=== PATIENT | female | born 1965 | race African-American/Black ===

== ENCOUNTER 2018-11-24 14:50 | Inpatient (IN) | payer OTHER ==
--- NOTE | 2018-11-24 17:45 | HP ---
CIWA Score - Admission Criteria [facility]ASAS Guidelines: Admission for Medically Managed Detox: Requires at least one of the followin. CIWA greater than 12 2. Seizures within the past 24 hours 3. Delirium tremens within the past 24 hours 4. Hallucinations within the past 24 hours 5. Acute intervention needed for co occurring medical disorder 6. Acute intervention needed for co occurring psychiatric disorder 7. Severe withdrawal that cannot be handled at a lower level of care (continued vomiting, continued diarrhea, abnormal vital signs) requiring intravenous medication and/or fluids 8. Admission [facility] Chief Complaint: THC, Alcohol, umesh rehabilitation Allergies/Adverse Reactions: Allergies Allergy/AdvReac Type Severity Reaction Status Date / Time pregabalin [From Lyrica] Allergy Verified 11/24/18 17:03 shellfish derived Allergy Verified 11/24/18 17:03 History of Present Illness: 52 yo female with hx of nicotine, alcohol, cocaine and marijuana dependence is here seeking rehabilitation, patient was referred by Julia in which she completed inpatient detox for alcohol today. PMHX: HIV. DM II, HTN, Asthma, GERD , neuropathy, (L) carpal tunnel. Psych: depression, anxiety. Denies suicidal / homicidal ideation. Reports hx of suicide one year ago and was admitted to [facility]. Longest period sobriety 23 years and relapsed last year. Denies hx of seizure or blackouts. Exam Limitations: No Limitations - Ebola screening Have you traveled outside of the country in the last 21 days: No Have you had contact with anyone from an Ebola affected area: No - Review of Systems Constitutional: Changes in sleep, Other (weight gain) EENT: reports: No Symptoms Reported Respiratory: reports: No Symptoms reported Cardiac: reports: Other (no chest pain at this time. CP with anxiety) GI: reports: Constipated (last BM today), Indigestion, Other (gas) : reports: Incontinence Musculoskeletal: reports: Back Pain, Joint Pain Integumentary: reports: No Symptoms Reported Neuro: reports: Numbness ( neuropathy hands, feet) Endocrine: reports: Increased Thirst Hematology: reports: No Symptoms Reported Psychiatric: reports: Orientated x3, Anxious Other Systems: Reviewed and Negative Patient History - Patient Medical History Hx Anemia: No Hx Asthma: Yes Hx Chronic Obstructive Pulmonary Disease (COPD): No Hx Cancer: No Hx Cardiac Disorders: No Hx Congestive Heart Failure: No Hx Hypertension: Yes Hx Hypercholesterolemia: No Hx Pacemaker: No HX Cerebrovascular Accident: No Hx Seizures: No Hx Dementia: No Hx Diabetes: Yes (insulin dependent ) Hx Gastrointestinal Disorders: Yes (constipation, GERD ) Hx Liver Disease: No Hx Genitourinary Disorders: No Hx Sexually Transmitted Disorders: Yes (syphillis ) Hx Renal Disease (ESRD): No Hx Thyroid Disease: No Hx Human Immunodeficiency Virus (HIV): Yes Hx Hepatitis C: No Hx Depression: Yes Hx Suicide Attempt: Yes (10x, last year admitted to psych hosp) Hx Bipolar Disorder: No Hx Schizophrenia: No - Patient Surgical History Past Surgical History: Yes Hx Hysterectomy: Yes Anesthesia Reaction: No - PPD History Previous Implant?: No Documented Results: Negative w/o proof PPD to be Administered?: Yes - Reproductive History Patient is a Female of Child Bearing Age (11 -55 yrs old): Yes (hx hystorectomy ) - Smoking Cessation Smoking history: Current every day smoker Have you smoked in the past 12 months: Yes Aproximately how many cigarettes per day: 7 Hx Chewing Tobacco Use: No Initiated information on smoking cessation: Yes 'Breaking Loose' booklet given: 11/24/18 - Substance & Tx. History Hx Alcohol Use: Yes Hx Substance Use: No Substance Use Type: Alcohol, Cocaine, Marijuana Hx Substance Use Treatment: Yes ([facility] 11/19/18 -11/24/18) - Substances abused Alcohol Substance route: Oral Frequency: Daily Amount used: 8 x 12 oz beers + 2 nips vodka + 3 glasses of wine Age of first use: 41 Date of last use: 11/18/18 Crack Substance route: Smoking Frequency: Daily Amount used: $60 Age of first use: 28 Date of last use: 11/18/18 Marijuana/Hashish Substance route: Smoking Frequency: Daily Amount used: 2 BLUNTS Age of first use: 16 Date of last use: 09/25/18 Family Disease History - Family Disease History Family Disease History: Diabetes: Mother (alcoholism, ), Heart Disease: Mother, CA: Mother, Other: Father (renal disease, IVDU, ) Admission Physical Exam [facility] - Vital Signs Vital Signs: Vital Signs - 24 hr 11/24/18 16:49 Temperature 98.6 F Pulse Rate 74 Respiratory 18 Rate Blood Pressure 154/81 - Physical General Appearance: Yes: Appropriately Dressed, Obese, Anxious HEENTM: Yes: EOMI, Hearing grossly Normal, Normal ENT Inspection, Normocephalic , Normal Voice, MUKUND, Pharynx Normal, Tm's normal Respiratory: Yes: Chest Non-Tender, Lungs Clear, Normal Breath Sounds, No Respiratory Distress, No Accessory Muscle Use Neck: Yes: Within Normal Limits Breast: Yes: Breast Exam Deferred Cardiology: Yes: Regular Rhythm, Regular Rate Abdominal: Yes: Normal Bowel Sounds, Non Tender, Soft, Protuberent Genitourinary: Yes: Within Normal Limits Back: Yes: Normal Inspection Musculoskeletal: Yes: full range of Motion, Gait Steady, Pelvis Stable Extremities: Yes: Normal Capillary Refill, Normal Inspection, Normal Range of Motion, Non-Tender Neurological: Yes: land developer II-XII NML intact, Fully Oriented, Alert, Motor Strength 5/5, Depressed Affect Integumentary: Yes: Normal Color, Dry, Warm Lymphatic: Yes: Within Normal Limits - Diagnostic (1) HIV (human immunodeficiency virus infection) Current Visit: Yes Status: Chronic (2) HTN (hypertension) Current Visit: Yes Status: Chronic Qualifiers: Hypertension type: essential hypertension Qualified Code(s): I10 - Essential (primary) hypertension (3) Diabetes mellitus Current Visit: Yes Status: Chronic Qualifiers: Diabetes mellitus type: type 2 Diabetes mellitus epic [facility] specialists insulin use: with detention use (4) Asthma Current Visit: Yes Status: Chronic Qualifiers: Asthma severity: mild Asthma complication type: unspecified (5) Neuropathy Current Visit: Yes Status: Chronic (6) GERD (gastroesophageal reflux disease) Current Visit: Yes Status: Chronic Qualifiers: Esophagitis presence: without esophagitis Qualified Code(s): K21.9 - Gastro -esophageal reflux disease without esophagitis (7) Cocaine dependence Current Visit: Yes Status: Acute Qualifiers: Substance use status: uncomplicated Qualified Code(s): F14.20 - Cocaine dependence, uncomplicated (8) Alcohol dependence Current Visit: Yes Status: Acute Breathalyzer - Breathalyzer Breathalyzer: 0 POC Urine test - Test device test lot number: [id number] Expiration date: 04/24/20 - Control test control: Yes - Result Urine Test Results: Negative - NO line present Urine Drug Screen - Test Device Lot number: [id number] Expiration date: 07/24/20 - Control Is test valid?: Yes - Results Drug screen NEGATIVE: No Urine drug screen results: BZO-Benzodiazepines Inpatient Rehab Admission - Rehab Decision to Admit Inpatient rehab admission?: Yes - Initial Determination Are CD services needed?: Yes Free of communicable disease: Yes Not in need of hospitalization: Yes - Rehab Admission Criteria Previous failed treatment: Yes Poor recovery environment: Yes Comorbidities: Yes Lacks judgement: Yes Patient is meeting Inpatient Rehab admission criteria:: Yes
[2018-11-24] MEDS ORDERED: P-EPHED 60MG/TRIPROLIDI 2.5MG TABLET PO PRN (18:12)
[2018-11-24] MEDS ORDERED: LOPERAMIDE HCL 2 MG CAPSULE PO PRN (18:12)
[2018-11-24] MEDS ORDERED: NICOTINE POLACRILEX 2 MG GUM BC PRN (18:12)
[2018-11-24] MEDS ORDERED: MAGNESIUM HYDROX 2400MG/30ML ORAL SUSPENSION 30 ML CUP PO PRN (18:12)
[2018-11-24] MEDS ORDERED: ACETAMINOPHEN 325 MG TABLET (FP) PO PRN (18:12)
[2018-11-24] MEDS ORDERED: TUBERCULIN PPD 5 TU/0.1ML VIAL ID ONE ×2 (20:29→22:42)
[2018-11-24] MEDS: THIAMINE HCL 100 MG TABLET (FP) PO SCH (21:02)
[2018-11-24] MEDS: GABAPENTIN 800 MG PO SCH (21:02)
[2018-11-24] MEDS ORDERED: PT OWN MED DRAWER 7, Y5N ONE ×2 (21:57→23:55)
[2018-11-24] MEDS: MELATONIN 5 MG TABLETS PO PRN (22:04)
[2018-11-24] MEDS: hydrOXYzine PAMOATE 50 MG CAPSULE (FP) PO SCH (22:07)
[2018-11-24] MEDS: INSULIN (LEVEMIR) 100 UNITS/ML UNITS SQ SCH (22:07)
[2018-11-24] MEDS ORDERED: INSULIN (NOVOLOG) ASPART 100 UNITS/ML 10ML VIAL SQ ONE (22:22)
[2018-11-24] MEDS ORDERED: INSULIN (NOVOLOG) ASPART 100 UNITS/ML 10ML VIAL ONE (22:42)
[2018-11-24 23:12] LABS: EPI CELLS 17.3 /HPF (0-5); PH,URINE 6.5 (5.0-8.0); URINE APPEARANCE CLOUDY; URINE BACTERIA 223.1 /hpf (NEGATIVE); URINE BILIRUBIN NEGATIVE (NEGATIVE); URINE CASTS 3 /hpf (0-8); URINE COLOR YELLOW; URINE GLUCOSE (UA) 3+ (NEGATIVE); URINE KETONE NEGATIVE (NEGATIVE); URINE LEUK ESTERASE NEGATIVE (NEGATIVE); URINE NITRITE NEGATIVE (NEGATIVE); URINE PROTEIN 1+ (NEGATIVE); URINE RBC 2 /hpf (0-4); URINE UROBILINOGEN 0.2 mg/dL (0.2-1.0); URINE WBC 7 /hpf (0-5)
[2018-11-25] MEDS: hydrOXYzine PAMOATE 50 MG CAPSULE (FP) PO SCH (06:45)
[2018-11-25] MEDS: INSULIN (NOVOLOG) ASPART 100 UNITS/ML 10ML VIAL SQ SCH ×3 (06:45→16:52)
[2018-11-25] MEDS: IBUPROFEN 400 MG TABLET (FP) PO PRN ×2 (06:45→13:57)
[2018-11-25] MEDS ORDERED: VIT B COMP C PO SCH (10:00)
[2018-11-25] MEDS ORDERED: [UNRECOGNIZED DRUG - OTHER] PO SCH (10:00)
[2018-11-25] MEDS ORDERED: LISINOPRIL 20 MG TABLET (FP) PO SCH ×3 (10:00→11:30)
[2018-11-25] MEDS ORDERED: FOLIC ACID PO SCH (10:00)
[2018-11-25] MEDS ORDERED: D3 PO SCH (10:00)
[2018-11-25] MEDS ORDERED: BACLOFEN 10 MG TABLET (FP) PO SCH ×3 (10:00→14:00)
[2018-11-25] MEDS ORDERED: FLUCONAZOLE 100 MG PO SCH (10:00)
--- NOTE | 2018-11-25 10:08 | EKG ---
Test Reason : Blood Pressure : / mmHG Vent. Rate : 067 BPM Atrial Rate : 067 BPM P-R Int : 142 ms QRS Dur : 094 ms QT Int : 438 ms P-R-T Axes : 000 146 162 degrees QTc Int : 462 ms SINUS RHYTHM WITH FUSION COMPLEXES RIGHT AXIS DEVIATION INCOMPLETE RIGHT BUNDLE BRANCH BLOCK ABNORMAL ECG NO PREVIOUS ECGS AVAILABLE Confirmed by NETTA FELTON MD ([id number]) on 11/25/2018 10:08:23 AM Referred By: Confirmed By:NETTA FELTON MD
[2018-11-25] MEDS: PATIENT'S OWN MEDICATION (NON-FORMULARY) (Abacavir/Dolutegravir/Lamivudi [Triumeq 600-50-3 PO SCH (11:45)
[2018-11-25] MEDS: NICOTINE 14 MG/24 HOURS TOPICAL PATCH TD SCH (11:46)
[2018-11-25] MEDS: BACLOFEN 10 MG PO SCH (11:46)
[2018-11-25] MEDS: PRENATAL VITAMINS W/ FOLIC ACID TABLET (FP) PO SCH (11:46)
[2018-11-25] MEDS: GABAPENTIN 800 MG PO SCH ×2 (11:46→21:34)
[2018-11-25] MEDS ORDERED: PATIENT'S OWN MEDICATION (NON-FORMULARY) (Fluconazole [Fluconazole] 200 MG) PO SCH (11:48)
[2018-11-25] MEDS: MAGNESIUM CITRATE 300 ML BOTTLE PO PRN (11:56)
[2018-11-25] MEDS: LISINOPRIL 40 MG PO SCH (12:20)
[2018-11-25 12:33] LABS: ALBUMIN 3.1 g/dl (3.4-5.0); ALK PHOS 108 U/L (45-117); ANION GAP 6 MMOL/L (8-16); BILIRUBIN,TOTAL 0.2 mg/dL (0.2-1); BLOOD UREA NITROGEN 20 mg/dL (7-18); CALCIUM 8.8 mg/dL (8.5-10.1); CHLORIDE 101 mmol/L (98-107); CO2 31 mmol/L (21-32); CREATININE 0.7 mg/dL (0.55-1.3); GLUCOSE,RANDOM 192 mg/dL (74-106); POTASSIUM 4.2 mmol/L (3.5-5.1); SGOT/AST 30 U/L (15-37); SGPT/ALT 43 U/L (13-61); SODIUM 138 mmol/L (136-145); TOT PROT 7.3 g/dl (6.4-8.2)
[2018-11-25 12:37] LABS: HEMATOCRIT 37.7 % (32.4-45.2); HEMOGLOBIN 12.3 GM/dL (10.7-15.3); MCH 29.1 pg (25.7-33.7); MCHC 32.7 g/dl (32.0-36.0); MEAN PLT VOLUME 10.1 fl (7.5-11.1); PLATELET COUNT 171 K/MM3 (134-434); RBC 4.23 M/mm3 (3.60-5.2); RDW 14.8 % (11.6-15.6); WHITE BLOOD COUNT 3.7 K/mm3 (4.0-10.0)
--- NOTE | 2018-11-25 13:24 | EKG ---
Test Reason : Blood Pressure : / mmHG Vent. Rate : 075 BPM Atrial Rate : 075 BPM P-R Int : 152 ms QRS Dur : 098 ms QT Int : 412 ms P-R-T Axes : 060 034 023 degrees QTc Int : 460 ms NORMAL SINUS RHYTHM POSSIBLE LEFT ATRIAL ENLARGEMENT BORDERLINE ECG WHEN COMPARED WITH ECG OF 24-NOV-2018 17:46, FUSION COMPLEXES ARE NO LONGER PRESENT QRS AXIS SHIFTED LEFT NON-SPECIFIC CHANGE IN ST SEGMENT IN LATERAL LEADS T WAVE INVERSION NO LONGER EVIDENT IN LATERAL LEADS Confirmed by PURNIMA MAHMOOD, NETTA ([id number]) on 11/25/2018 1:24:09 PM Referred By: Confirmed By:NETTA FELTON MD
[2018-11-25] MEDS: HYDROXYZINE PAMOATE 25 MG PO SCH ×2 (13:56→21:34)
[2018-11-25] MEDS ORDERED: hydrOXYzine PAMOATE 25 MG CAPSULE (FP) PO SCH (14:00)
[2018-11-25] MEDS ORDERED: PT OWN MED DRAWER 7, Y5N ONE ×2 (16:11→23:33)
[2018-11-25] MEDS ORDERED: INSULIN (NOVOLOG) ASPART 100 UNITS/ML 10ML VIAL ONE (16:39)
[2018-11-25] MEDS: MELATONIN 5 MG TABLETS PO PRN (21:34)
[2018-11-25] MEDS: THIAMINE HCL 100 MG TABLET (FP) PO SCH (21:34)
[2018-11-25] MEDS: INSULIN (LEVEMIR) 100 UNITS/ML UNITS SQ SCH (21:39)
[2018-11-25] MEDS ORDERED: ALBUTEROL SO4 0.083% IH SOL 2.5 MG/3 ML VIAL.NEB. NEB PRN (22:35)
[2018-11-26] MEDS ORDERED: cloNIDine HCL 0.1 MG TABLET PO ONE (07:02)
--- NOTE | 2018-11-26 07:05 | PN ---
S Progress Note Note: patient's blood pressure this morning is B/P 183/103. Patient is asymptomatic. Vital Signs Temperature 97.6 F 11/26/18 06:54 Pulse Rate 74 11/26/18 06:54 Respiratory Rate 18 11/26/18 06:54 Blood Pressure 183/106 H 11/26/18 06:54 O2 Sat by Pulse Oximetry (%) Action: Clonidine 0.1mg tablet 1 tablet oral ordered
[2018-11-26] MEDS: HYDROXYZINE PAMOATE 25 MG PO SCH ×3 (07:22→21:36)
[2018-11-26] MEDS: INSULIN (NOVOLOG) ASPART 100 UNITS/ML 10ML VIAL SQ SCH ×3 (07:24→16:58)
[2018-11-26] MEDS ORDERED: PT OWN MED DRAWER 7, Y5N ONE ×5 (08:09→23:50)
[2018-11-26] MEDS ORDERED: D3 PO SCH (08:12)
[2018-11-26] MEDS ORDERED: FOLIC ACID PO SCH (08:12)
[2018-11-26] MEDS ORDERED: VIT B COMP C PO SCH (08:12)
[2018-11-26] MEDS ORDERED: [UNRECOGNIZED DRUG - OTHER] PO SCH (08:12)
[2018-11-26] MEDS: PRENATAL VITAMINS W/ FOLIC ACID TABLET (FP) PO SCH (09:18)
[2018-11-26] MEDS: NICOTINE 14 MG/24 HOURS TOPICAL PATCH TD SCH (09:18)
[2018-11-26] MEDS: BACLOFEN 10 MG PO SCH (09:19)
[2018-11-26] MEDS: PATIENT'S OWN MEDICATION (NON-FORMULARY) (Fluconazole [Fluconazole] 200 MG) PO SCH (09:19)
[2018-11-26] MEDS: PATIENT'S OWN MEDICATION (NON-FORMULARY) (Abacavir/Dolutegravir/Lamivudi [Triumeq 600-50-3 PO SCH (09:19)
[2018-11-26] MEDS: GABAPENTIN 800 MG PO SCH ×2 (09:20→21:37)
[2018-11-26] MEDS: LISINOPRIL 40 MG PO SCH (09:22)
[2018-11-26] MEDS: PANTOPRAZOLE 40 MG TABLET (FP) PO SCH (10:33)
[2018-11-26] MEDS: HYDROCHLOROTHIAZIDE 25 MG TABLET (FP) PO SCH (10:34)
[2018-11-26] MEDS: BUDESONIDE/FORMETEROL FUMARATE 80/4.5 mcg INHALER IH SCH ×2 (10:34→21:41)
[2018-11-26] MEDS: IBUPROFEN 400 MG TABLET (FP) PO PRN ×2 (12:44→21:37)
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
[2018-11-26] MEDS ORDERED: INSULIN (NOVOLOG) ASPART 100 UNITS/ML 10ML VIAL ONE (16:46)
[2018-11-26] MEDS: MAG HYDROX/AL HYDROX/SIMETH 30 ML UNIT-DOSE CUP PO PRN (19:14)
[2018-11-26] MEDS: THIAMINE HCL 100 MG TABLET (FP) PO SCH (21:35)
[2018-11-26] MEDS ORDERED: INSULIN (LEVEMIR) 100 UNITS/ML UNITS SQ ONE (21:39)
[2018-11-26] MEDS: LURASIDONE HCL 20 MG TABLET PO SCH (21:40)
[2018-11-26] MEDS: INSULIN (LEVEMIR) 100 UNITS/ML UNITS SQ SCH (21:42)
[2018-11-27] MEDS: HYDROXYZINE PAMOATE 25 MG PO SCH ×3 (06:53→21:47)
[2018-11-27] MEDS: INSULIN (NOVOLOG) ASPART 100 UNITS/ML 10ML VIAL SQ SCH ×3 (07:51→16:43)
[2018-11-27] MEDS ORDERED: PT OWN MED DRAWER 7, Y5N ONE ×4 (09:04→23:19)
[2018-11-27] MEDS: PRENATAL VITAMINS W/ FOLIC ACID TABLET (FP) PO SCH (10:30)
[2018-11-27] MEDS: BACLOFEN 10 MG PO SCH (10:31)
[2018-11-27] MEDS: VITAMIN B COMPLEX W/C COMBO TABLET (FP) PO SCH (10:31)
[2018-11-27] MEDS: BUDESONIDE/FORMETEROL FUMARATE 80/4.5 mcg INHALER IH SCH ×2 (10:31→21:50)
[2018-11-27] MEDS: PANTOPRAZOLE 40 MG TABLET (FP) PO SCH (10:31)
[2018-11-27] MEDS: PATIENT'S OWN MEDICATION (NON-FORMULARY) (Abacavir/Dolutegravir/Lamivudi [Triumeq 600-50-3 PO SCH (10:31)
[2018-11-27] MEDS: HYDROCHLOROTHIAZIDE 25 MG TABLET (FP) PO SCH (10:31)
[2018-11-27] MEDS: LISINOPRIL 40 MG PO SCH (10:32)
[2018-11-27] MEDS: GABAPENTIN 800 MG PO SCH ×2 (10:32→21:49)
[2018-11-27] MEDS: PATIENT'S OWN MEDICATION (NON-FORMULARY) (Fluconazole [Fluconazole] 200 MG) PO SCH (10:33)
[2018-11-27] MEDS: NICOTINE 14 MG/24 HOURS TOPICAL PATCH TD SCH (10:34)
[2018-11-27] MEDS ORDERED: ALBUTEROL SO4 8 GM HFA INHALER IH PRN (10:47)
--- NOTE | 2018-11-27 10:50 | PN ---
[facility] Progress Note Note: NOTIFIED BY RN PATIENT C/O ANXIETY AND PALPITATIONS. PATIENT TREATED WITH VISTARIL 50 MG TID WHICH HELPS TO ALLEVIATE SYMPTOMS, HOWEVER NEXT DOSE IS AT 2PM. WILL ORDER STAT DOSE OF VISTARIL AND MONITOR CLINICALLY. PATIENT ALSO REPORTS H/O ASTHMA. ALBUTEROL INH AND NEBULIZERS ORDERED PRN. CONTINUE TO MONITOR CLINICALLY. Vital Signs Temperature 97.9 F 11/27/18 07:36 Pulse Rate 86 11/27/18 09:32 Respiratory Rate 18 11/27/18 07:36 Blood Pressure 158/82 11/27/18 09:32 O2 Sat by Pulse Oximetry (%)
[2018-11-27] MEDS ORDERED: hydrOXYzine PAMOATE 50 MG CAPSULE (FP) PO ONE (11:14)
[2018-11-27] MEDS: IBUPROFEN 400 MG TABLET (FP) PO PRN (14:43)
[2018-11-27] MEDS ORDERED: INSULIN (NOVOLOG) ASPART 100 UNITS/ML 10ML VIAL ONE (16:32)
[2018-11-27] MEDS: MAGNESIUM CITRATE 300 ML BOTTLE PO PRN (16:40)
[2018-11-27] MEDS: THIAMINE HCL 100 MG TABLET (FP) PO SCH (21:46)
[2018-11-27] MEDS: LURASIDONE HCL 20 MG TABLET PO SCH (21:48)
[2018-11-27] MEDS: INSULIN (LEVEMIR) 100 UNITS/ML UNITS SQ SCH (21:48)
[2018-11-27] MEDS ORDERED: INSULIN (LEVEMIR) 100 UNITS/ML UNITS SQ ONE (23:27)
[2018-11-28] MEDS: HYDROXYZINE PAMOATE 25 MG PO SCH ×3 (06:44→21:46)
[2018-11-28] MEDS: INSULIN (NOVOLOG) ASPART 100 UNITS/ML 10ML VIAL SQ SCH ×3 (06:46→16:57)
[2018-11-28] MEDS: PATIENT'S OWN MEDICATION (NON-FORMULARY) (Abacavir/Dolutegravir/Lamivudi [Triumeq 600-50-3 PO SCH (09:48)
[2018-11-28] MEDS: PATIENT'S OWN MEDICATION (NON-FORMULARY) (Fluconazole [Fluconazole] 200 MG) PO SCH (09:49)
[2018-11-28] MEDS: GABAPENTIN 800 MG PO SCH ×2 (09:51→21:02)
[2018-11-28] MEDS: HYDROCHLOROTHIAZIDE 25 MG TABLET (FP) PO SCH (09:52)
[2018-11-28] MEDS: NICOTINE 14 MG/24 HOURS TOPICAL PATCH TD SCH (09:52)
[2018-11-28] MEDS: BACLOFEN 10 MG PO SCH (09:52)
[2018-11-28] MEDS: PANTOPRAZOLE 40 MG TABLET (FP) PO SCH (09:53)
[2018-11-28] MEDS: PRENATAL VITAMINS W/ FOLIC ACID TABLET (FP) PO SCH (09:53)
[2018-11-28] MEDS: BUDESONIDE/FORMETEROL FUMARATE 80/4.5 mcg INHALER IH SCH ×2 (09:53→21:46)
[2018-11-28] MEDS: LISINOPRIL 40 MG PO SCH (09:53)
[2018-11-28] MEDS: VITAMIN B COMPLEX W/C COMBO TABLET (FP) PO SCH (09:54)
[2018-11-28] MEDS: IBUPROFEN 400 MG TABLET (FP) PO PRN ×2 (09:56→21:05)
[2018-11-28] MEDS ORDERED: PT OWN MED DRAWER 7, Y5N ONE ×2 (11:00→13:51)
[2018-11-28] MEDS: MAG HYDROX/AL HYDROX/SIMETH 30 ML UNIT-DOSE CUP PO PRN (16:57)
[2018-11-28] MEDS: INSULIN (LEVEMIR) 100 UNITS/ML UNITS SQ SCH (21:03)
[2018-11-28] MEDS: LURASIDONE HCL 20 MG TABLET PO SCH (21:03)
[2018-11-28] MEDS: THIAMINE HCL 100 MG TABLET (FP) PO SCH (21:03)
[2018-11-29] MEDS: HYDROXYZINE PAMOATE 25 MG PO SCH ×3 (06:28→21:32)
[2018-11-29] MEDS: INSULIN (NOVOLOG) ASPART 100 UNITS/ML 10ML VIAL SQ SCH ×3 (06:28→16:51)
[2018-11-29] MEDS ORDERED: PT OWN MED DRAWER 7, Y5N ONE ×3 (06:31→22:53)
[2018-11-29] MEDS: IBUPROFEN 400 MG TABLET (FP) PO PRN (08:35)
[2018-11-29] MEDS: MENTHOL/PHENOL 1 EACH UD MM PRN (08:37)
[2018-11-29] MEDS: guaiFENesin 200 MG/10 ML 10 ML UNIT-DOSE CUPS PO PRN (08:37)
[2018-11-29] MEDS: PATIENT'S OWN MEDICATION (NON-FORMULARY) (Abacavir/Dolutegravir/Lamivudi [Triumeq 600-50-3 PO SCH (10:02)
[2018-11-29] MEDS: PATIENT'S OWN MEDICATION (NON-FORMULARY) (Fluconazole [Fluconazole] 200 MG) PO SCH (10:02)
[2018-11-29] MEDS: GABAPENTIN 800 MG PO SCH ×2 (10:02→21:30)
[2018-11-29] MEDS: BACLOFEN 10 MG PO SCH (10:03)
[2018-11-29] MEDS: NICOTINE 14 MG/24 HOURS TOPICAL PATCH TD SCH (10:03)
[2018-11-29] MEDS: HYDROCHLOROTHIAZIDE 25 MG TABLET (FP) PO SCH (10:03)
[2018-11-29] MEDS: PANTOPRAZOLE 40 MG TABLET (FP) PO SCH (10:04)
[2018-11-29] MEDS: BUDESONIDE/FORMETEROL FUMARATE 80/4.5 mcg INHALER IH SCH ×2 (10:04→21:31)
[2018-11-29] MEDS: PRENATAL VITAMINS W/ FOLIC ACID TABLET (FP) PO SCH (10:04)
[2018-11-29] MEDS: VITAMIN B COMPLEX W/C COMBO TABLET (FP) PO SCH (10:04)
[2018-11-29] MEDS: LISINOPRIL 40 MG PO SCH (10:04)
[2018-11-29] MEDS: LURASIDONE HCL 20 MG TABLET PO SCH (21:30)
[2018-11-29] MEDS: MELATONIN 5 MG TABLETS PO PRN (21:32)
[2018-11-29] MEDS: THIAMINE HCL 100 MG TABLET (FP) PO SCH (21:32)
[2018-11-29] MEDS: INSULIN (LEVEMIR) 100 UNITS/ML UNITS SQ SCH (21:34)
[2018-11-30] MEDS: HYDROXYZINE PAMOATE 25 MG PO SCH ×3 (06:48→21:31)
[2018-11-30] MEDS: MENTHOL/PHENOL 1 EACH UD MM PRN (06:51)
[2018-11-30] MEDS: IBUPROFEN 400 MG TABLET (FP) PO PRN ×2 (06:51→21:33)
[2018-11-30] MEDS: INSULIN (NOVOLOG) ASPART 100 UNITS/ML 10ML VIAL SQ SCH ×3 (07:44→16:56)
[2018-11-30] MEDS: PRENATAL VITAMINS W/ FOLIC ACID TABLET (FP) PO SCH (09:45)
[2018-11-30] MEDS: PANTOPRAZOLE 40 MG TABLET (FP) PO SCH (09:45)
[2018-11-30] MEDS: HYDROCHLOROTHIAZIDE 25 MG TABLET (FP) PO SCH (09:45)
[2018-11-30] MEDS: VITAMIN B COMPLEX W/C COMBO TABLET (FP) PO SCH (09:46)
[2018-11-30] MEDS: BACLOFEN 10 MG PO SCH (09:47)
[2018-11-30] MEDS: NICOTINE 14 MG/24 HOURS TOPICAL PATCH TD SCH (09:47)
[2018-11-30] MEDS: LISINOPRIL 40 MG PO SCH (09:47)
[2018-11-30] MEDS: GABAPENTIN 800 MG PO SCH ×2 (09:47→21:36)
[2018-11-30] MEDS: PATIENT'S OWN MEDICATION (NON-FORMULARY) (Fluconazole [Fluconazole] 200 MG) PO SCH (09:47)
[2018-11-30] MEDS: BUDESONIDE/FORMETEROL FUMARATE 80/4.5 mcg INHALER IH SCH ×2 (09:48→21:38)
[2018-11-30] MEDS: PATIENT'S OWN MEDICATION (NON-FORMULARY) (Abacavir/Dolutegravir/Lamivudi [Triumeq 600-50-3 PO SCH (09:48)
--- NOTE | 2018-11-30 13:34 | PN ---
[facility] Progress Note Note: Patient seen for c/o sore throat and order for stool softener. Patient denies fever, cough, earache and nasal congestion. Has hx of constipation. Vital Signs Temperature 98.0 F 11/30/18 07:33 Pulse Rate 83 11/30/18 09:52 Respiratory Rate 18 11/30/18 07:33 Blood Pressure 149/79 11/30/18 09:52 O2 Sat by Pulse Oximetry (%) Laboratory Tests 11/24/18 11/24/18 11/24/18 19:33 21:10 22:00 WBC RBC Hgb Hct MCV MCH MCHC RDW Plt Count MPV Sodium Potassium Chloride Carbon Dioxide Anion Gap BUN Creatinine Creat Clearance w eGFR POC Glucometer 258 266 Random Glucose Calcium Total Bilirubin AST ALT Alkaline Phosphatase Total Protein Albumin Urine Color Yellow Urine Appearance Cloudy Urine pH 6.5 Ur Specific [place] 1.015 Urine Protein 1+ H Urine Glucose (UA) 3+ H Urine Ketones Negative Urine Blood Negative Urine Nitrite Negative Urine Bilirubin Negative Urine Urobilinogen 0.2 Ur Leukocyte Esterase Negative Urine WBC (Auto) 7 Urine RBC (Auto) 2 Urine Casts (Auto) 3 U Epithel Cells (Auto) 17.3 Urine Bacteria (Auto) 223.1 RPR Titer 11/24/18 11/25/18 11/25/18 22:05 06:42 09:00 WBC 3.7 L RBC 4.23 Hgb 12.3 Hct 37.7 MCV 89.0 MCH 29.1 MCHC 32.7 RDW 14.8 Plt Count 171 MPV 10.1 Sodium Potassium Chloride Carbon Dioxide Anion Gap BUN Creatinine Creat Clearance w eGFR POC Glucometer 351 266 Random Glucose Calcium Total Bilirubin AST ALT Alkaline Phosphatase Total Protein Albumin Urine Color Urine Appearance Urine pH Ur Specific [place] Urine Protein Urine Glucose (UA) Urine Ketones Urine Blood Urine Nitrite Urine Bilirubin Urine Urobilinogen Ur Leukocyte Esterase Urine WBC (Auto) Urine RBC (Auto) Urine Casts (Auto) U Epithel Cells (Auto) Urine Bacteria (Auto) RPR Titer 11/25/18 11/25/18 11/25/18 09:00 09:00 11:49 WBC RBC Hgb Hct MCV MCH MCHC RDW Plt Count MPV Sodium 138 Potassium 4.2 Chloride 101 Carbon Dioxide 31 Anion Gap 6 L BUN 20 H Creatinine 0.7 Creat Clearance w eGFR 88.22 POC Glucometer 315 Random Glucose 192 H Calcium 8.8 Total Bilirubin 0.2 AST 30 ALT 43 Alkaline Phosphatase 108 Total Protein 7.3 Albumin 3.1 L Urine Color Urine Appearance Urine pH Ur Specific [place] Urine Protein Urine Glucose (UA) Urine Ketones Urine Blood Urine Nitrite Urine Bilirubin Urine Urobilinogen Ur Leukocyte Esterase Urine WBC (Auto) Urine RBC (Auto) Urine Casts (Auto) U Epithel Cells (Auto) Urine Bacteria (Auto) RPR Titer Nonreactive 11/25/18 11/25/18 11/26/18 16:51 21:37 06:52 WBC RBC Hgb Hct MCV MCH MCHC RDW Plt Count MPV Sodium Potassium Chloride Carbon Dioxide Anion Gap BUN Creatinine Creat Clearance w eGFR POC Glucometer 200 277 243 Random Glucose Calcium Total Bilirubin AST ALT Alkaline Phosphatase Total Protein Albumin Urine Color Urine Appearance Urine pH Ur Specific [place] Urine Protein Urine Glucose (UA) Urine Ketones Urine Blood Urine Nitrite Urine Bilirubin Urine Urobilinogen Ur Leukocyte Esterase Urine WBC (Auto) Urine RBC (Auto) Urine Casts (Auto) U Epithel Cells (Auto) Urine Bacteria (Auto) RPR Titer 11/26/18 11/26/18 11/26/18 11:49 16:56 21:41 WBC RBC Hgb Hct MCV MCH MCHC RDW Plt Count MPV Sodium Potassium Chloride Carbon Dioxide Anion Gap BUN Creatinine Creat Clearance w eGFR POC Glucometer 267 313 356 Random Glucose Calcium Total Bilirubin AST ALT Alkaline Phosphatase Total Protein Albumin Urine Color Urine Appearance Urine pH Ur Specific [place] Urine Protein Urine Glucose (UA) Urine Ketones Urine Blood Urine Nitrite Urine Bilirubin Urine Urobilinogen Ur Leukocyte Esterase Urine WBC (Auto) Urine RBC (Auto) Urine Casts (Auto) U Epithel Cells (Auto) Urine Bacteria (Auto) RPR Titer 11/27/18 11/27/18 11/27/18 06:49 12:18 16:42 WBC RBC Hgb Hct MCV MCH MCHC RDW Plt Count MPV Sodium Potassium Chloride Carbon Dioxide Anion Gap BUN Creatinine Creat Clearance w eGFR POC Glucometer 105 224 285 Random Glucose Calcium Total Bilirubin AST ALT Alkaline Phosphatase Total Protein Albumin Urine Color Urine Appearance Urine pH Ur Specific [place] Urine Protein Urine Glucose (UA) Urine Ketones Urine Blood Urine Nitrite Urine Bilirubin Urine Urobilinogen Ur Leukocyte Esterase Urine WBC (Auto) Urine RBC (Auto) Urine Casts (Auto) U Epithel Cells (Auto) Urine Bacteria (Auto) RPR Titer 11/27/18 11/28/18 11/28/18 21:52 06:42 11:53 WBC RBC Hgb Hct MCV MCH MCHC RDW Plt Count MPV Sodium Potassium Chloride Carbon Dioxide Anion Gap BUN Creatinine Creat Clearance w eGFR POC Glucometer 321 207 245 Random Glucose Calcium Total Bilirubin AST ALT Alkaline Phosphatase Total Protein Albumin Urine Color Urine Appearance Urine pH Ur Specific [place] Urine Protein Urine Glucose (UA) Urine Ketones Urine Blood Urine Nitrite Urine Bilirubin Urine Urobilinogen Ur Leukocyte Esterase Urine WBC (Auto) Urine RBC (Auto) Urine Casts (Auto) U Epithel Cells (Auto) Urine Bacteria (Auto) RPR Titer 11/28/18 11/28/18 11/29/18 16:52 21:01 06:27 WBC RBC Hgb Hct MCV MCH MCHC RDW Plt Count MPV Sodium Potassium Chloride Carbon Dioxide Anion Gap BUN Creatinine Creat Clearance w eGFR POC Glucometer 265 309 82 Random Glucose Calcium Total Bilirubin AST ALT Alkaline Phosphatase Total Protein Albumin Urine Color Urine Appearance Urine pH Ur Specific [place] Urine Protein Urine Glucose (UA) Urine Ketones Urine Blood Urine Nitrite Urine Bilirubin Urine Urobilinogen Ur Leukocyte Esterase Urine WBC (Auto) Urine RBC (Auto) Urine Casts (Auto) U Epithel Cells (Auto) Urine Bacteria (Auto) RPR Titer 11/29/18 11/29/18 11/29/18 11:47 16:48 21:29 WBC RBC Hgb Hct MCV MCH MCHC RDW Plt Count MPV Sodium Potassium Chloride Carbon Dioxide Anion Gap BUN Creatinine Creat Clearance w eGFR POC Glucometer 240 285 292 Random Glucose Calcium Total Bilirubin AST ALT Alkaline Phosphatase Total Protein Albumin Urine Color Urine Appearance Urine pH Ur Specific [place] Urine Protein Urine Glucose (UA) Urine Ketones Urine Blood Urine Nitrite Urine Bilirubin Urine Urobilinogen Ur Leukocyte Esterase Urine WBC (Auto) Urine RBC (Auto) Urine Casts (Auto) U Epithel Cells (Auto) Urine Bacteria (Auto) RPR Titer 11/30/18 11/30/18 11/30/18 06:49 09:35 11:53 WBC RBC Hgb Hct MCV MCH MCHC RDW Plt Count MPV Sodium Potassium Chloride Carbon Dioxide Anion Gap BUN Creatinine Creat Clearance w eGFR POC Glucometer 143 179 179 Random Glucose Calcium Total Bilirubin AST ALT Alkaline Phosphatase Total Protein Albumin Urine Color Urine Appearance Urine pH Ur Specific [place] Urine Protein Urine Glucose (UA) Urine Ketones Urine Blood Urine Nitrite Urine Bilirubin Urine Urobilinogen Ur Leukocyte Esterase Urine WBC (Auto) Urine RBC (Auto) Urine Casts (Auto) U Epithel Cells (Auto) Urine Bacteria (Auto) RPR Titer PE: alert and oriented x 3 skin warm and dry +perrla, eoms intact b/l, pharynx pink, tonsils 2+, no visible exudate neck supple, no jvd a/p: Pharyngitis hx of constipation will continue cepastat prn salt water gargles as tolerated order throat culture colace 100mg bid for stool softener continue to monitor clinically
[2018-11-30] MEDS: DOCUSATE SODIUM 100 MG CAPSULE (FP) PO SCH ×2 (14:41→21:31)
[2018-11-30] MEDS ORDERED: PT OWN MED DRAWER 7, Y5N ONE ×4 (14:43→23:18)
[2018-11-30] MEDS: SIMETHICONE 80 MG TAB.CHEW (FP) PO PRN ×2 (14:44→23:16)
[2018-11-30] MEDS: THIAMINE HCL 100 MG TABLET (FP) PO SCH (21:31)
[2018-11-30] MEDS: MELATONIN 5 MG TABLETS PO PRN (21:32)
[2018-11-30] MEDS: LURASIDONE HCL 20 MG TABLET PO SCH (21:34)
[2018-11-30] MEDS: INSULIN (LEVEMIR) 100 UNITS/ML UNITS SQ SCH (21:37)
[2018-11-30] MEDS ORDERED: INSULIN (NOVOLOG) ASPART 100 UNITS/ML 10ML VIAL ONE (23:25)
[2018-12-01] MEDS: HYDROXYZINE PAMOATE 25 MG PO SCH ×3 (06:26→21:59)
[2018-12-01] MEDS: MENTHOL/PHENOL 1 EACH UD MM PRN (06:27)
[2018-12-01] MEDS: IBUPROFEN 400 MG TABLET (FP) PO PRN (06:27)
[2018-12-01] MEDS: guaiFENesin 200 MG/10 ML 10 ML UNIT-DOSE CUPS PO PRN (06:27)
[2018-12-01] MEDS: INSULIN (NOVOLOG) ASPART 100 UNITS/ML 10ML VIAL SQ SCH ×3 (06:59→16:55)
[2018-12-01] MEDS: HYDROCHLOROTHIAZIDE 25 MG TABLET (FP) PO SCH (10:26)
[2018-12-01] MEDS: PRENATAL VITAMINS W/ FOLIC ACID TABLET (FP) PO SCH (10:26)
[2018-12-01] MEDS: PANTOPRAZOLE 40 MG TABLET (FP) PO SCH (10:26)
[2018-12-01] MEDS: DOCUSATE SODIUM 100 MG CAPSULE (FP) PO SCH ×2 (10:26→21:58)
[2018-12-01] MEDS: PATIENT'S OWN MEDICATION (NON-FORMULARY) (Abacavir/Dolutegravir/Lamivudi [Triumeq 600-50-3 PO SCH (10:27)
[2018-12-01] MEDS: VITAMIN B COMPLEX W/C COMBO TABLET (FP) PO SCH (10:27)
[2018-12-01] MEDS: LISINOPRIL 40 MG PO SCH (10:28)
[2018-12-01] MEDS: PATIENT'S OWN MEDICATION (NON-FORMULARY) (Fluconazole [Fluconazole] 200 MG) PO SCH (10:28)
[2018-12-01] MEDS: BACLOFEN 10 MG PO SCH (10:28)
[2018-12-01] MEDS: NICOTINE 14 MG/24 HOURS TOPICAL PATCH TD SCH (10:29)
[2018-12-01] MEDS: BUDESONIDE/FORMETEROL FUMARATE 80/4.5 mcg INHALER IH SCH ×2 (10:29→21:59)
[2018-12-01] MEDS: GABAPENTIN 800 MG PO SCH ×2 (10:31→21:58)
[2018-12-01] MEDS ORDERED: PT OWN MED DRAWER 7, Y5N ONE ×3 (10:31→22:54)
[2018-12-01] MEDS: SIMETHICONE 80 MG TAB.CHEW (FP) PO PRN (12:05)
[2018-12-01] MEDS: THIAMINE HCL 100 MG TABLET (FP) PO SCH (21:58)
[2018-12-01] MEDS: MELATONIN 5 MG TABLETS PO PRN (22:01)
[2018-12-01] MEDS: LURASIDONE HCL 20 MG TABLET PO SCH (22:03)
[2018-12-01] MEDS: INSULIN (LEVEMIR) 100 UNITS/ML UNITS SQ SCH (22:03)
[2018-12-02] MEDS ORDERED: PT OWN MED DRAWER 7, Y5N ONE ×3 (02:51→11:22)
[2018-12-02] MEDS: INSULIN (NOVOLOG) ASPART 100 UNITS/ML 10ML VIAL SQ SCH ×3 (06:18→17:08)
[2018-12-02] MEDS: HYDROXYZINE PAMOATE 25 MG PO SCH ×3 (06:19→21:17)
[2018-12-02] MEDS: guaiFENesin 200 MG/10 ML 10 ML UNIT-DOSE CUPS PO PRN ×2 (06:20→21:57)
[2018-12-02] MEDS: PATIENT'S OWN MEDICATION (NON-FORMULARY) (Abacavir/Dolutegravir/Lamivudi [Triumeq 600-50-3 PO SCH (11:05)
[2018-12-02] MEDS: DOCUSATE SODIUM 100 MG CAPSULE (FP) PO SCH ×2 (11:06→21:18)
[2018-12-02] MEDS: PATIENT'S OWN MEDICATION (NON-FORMULARY) (Fluconazole [Fluconazole] 200 MG) PO SCH (11:07)
[2018-12-02] MEDS: GABAPENTIN 800 MG PO SCH ×2 (11:07→21:19)
[2018-12-02] MEDS: HYDROCHLOROTHIAZIDE 25 MG TABLET (FP) PO SCH (11:09)
[2018-12-02] MEDS: NICOTINE 14 MG/24 HOURS TOPICAL PATCH TD SCH (11:09)
[2018-12-02] MEDS: BACLOFEN 10 MG PO SCH (11:09)
[2018-12-02] MEDS: PRENATAL VITAMINS W/ FOLIC ACID TABLET (FP) PO SCH (11:10)
[2018-12-02] MEDS: LISINOPRIL 40 MG PO SCH (11:10)
[2018-12-02] MEDS: PANTOPRAZOLE 40 MG TABLET (FP) PO SCH (11:10)
[2018-12-02] MEDS: BUDESONIDE/FORMETEROL FUMARATE 80/4.5 mcg INHALER IH SCH ×2 (11:11→21:19)
[2018-12-02] MEDS: SIMETHICONE 80 MG TAB.CHEW (FP) PO PRN ×2 (11:12→21:20)
[2018-12-02] MEDS: VITAMIN B COMPLEX W/C COMBO TABLET (FP) PO SCH (11:12)
[2018-12-02] MEDS: SODIUM CHLORIDE NASAL SPRAY 44 ML BOTTLE NS PRN (11:13)
[2018-12-02] MEDS: MENTHOL/PHENOL 1 EACH UD MM PRN (13:55)
--- NOTE | 2018-12-02 14:35 | PN ---
[facility] Progress Note Note: REVIEWED DIFLUCAN RX WITH PATIENT WHO STATES SHE DOES NOT WANT TO CONTINUE AFTER HER LAST DOSE AND WILL WAIT TO GO BACK TO HER MEDICAL PROVIDER BEFORE TAKING IF NEEDED. PT IS ALERT O X 3. NAD. Vital Signs - 24 hr 12/02/18 12/02/18 12/02/18 03:30 07:05 09:13 Temperature 97.4 F L Pulse Rate 79 96 H Respiratory 18 18 Rate Blood Pressure 135/82 161/91
[2018-12-02] MEDS: INSULIN (LEVEMIR) 100 UNITS/ML UNITS SQ SCH (21:16)
[2018-12-02] MEDS: THIAMINE HCL 100 MG TABLET (FP) PO SCH (21:16)
[2018-12-02] MEDS: MELATONIN 5 MG TABLETS PO PRN (21:18)
[2018-12-02] MEDS: IBUPROFEN 400 MG TABLET (FP) PO PRN (21:20)
[2018-12-02] MEDS: LURASIDONE HCL 20 MG TABLET PO SCH (21:22)
[2018-12-03] MEDS ORDERED: PT OWN MED DRAWER 7, Y5N ONE ×2 (06:11→11:15)
[2018-12-03] MEDS: HYDROXYZINE PAMOATE 25 MG PO SCH (06:37)
[2018-12-03] MEDS: MENTHOL/PHENOL 1 EACH UD MM PRN (06:38)
[2018-12-03] MEDS: guaiFENesin 200 MG/10 ML 10 ML UNIT-DOSE CUPS PO PRN (06:38)
[2018-12-03] MEDS: SODIUM CHLORIDE NASAL SPRAY 44 ML BOTTLE NS PRN (06:40)
[2018-12-03 07:01] VITALS: TEMP 97.6
[2018-12-03] MEDS: INSULIN (NOVOLOG) ASPART 100 UNITS/ML 10ML VIAL SQ SCH ×2 (07:49→12:00)
[2018-12-03 09:06] VITALS: BP 151/84; PULSE 96
[2018-12-03] MEDS: PRENATAL VITAMINS W/ FOLIC ACID TABLET (FP) PO SCH (09:51)
[2018-12-03] MEDS: DOCUSATE SODIUM 100 MG CAPSULE (FP) PO SCH (09:52)
[2018-12-03] MEDS: HYDROCHLOROTHIAZIDE 25 MG TABLET (FP) PO SCH (09:52)
[2018-12-03] MEDS: PATIENT'S OWN MEDICATION (NON-FORMULARY) (Abacavir/Dolutegravir/Lamivudi [Triumeq 600-50-3 PO SCH (09:52)
[2018-12-03] MEDS: BACLOFEN 10 MG PO SCH (09:52)
[2018-12-03] MEDS: PANTOPRAZOLE 40 MG TABLET (FP) PO SCH (09:52)
[2018-12-03] MEDS: VITAMIN B COMPLEX W/C COMBO TABLET (FP) PO SCH (09:52)
[2018-12-03] MEDS: LISINOPRIL 40 MG PO SCH (09:53)
[2018-12-03] MEDS: GABAPENTIN 800 MG PO SCH (09:53)
[2018-12-03] MEDS: BUDESONIDE/FORMETEROL FUMARATE 80/4.5 mcg INHALER IH SCH (09:54)
[2018-12-03] MEDS: NICOTINE 14 MG/24 HOURS TOPICAL PATCH TD SCH (09:54)
--- NOTE | 2018-12-03 11:34 | PN ---
[facility] Progress Note (SOAP) Subjective: Client is leaving today for personal reasons, has been her > 8 days. Objective: 12/03/18 11:30 CBC, BMP 11/25/18 09:00 11/25/18 09:00 Vital Signs (72 hours) 12/01/18 12/01/18 12/01/18 00:30 03:30 07:35 Temperature 97.2 F L Pulse Rate 69 Respiratory 18 18 18 Rate Blood Pressure 144/87 12/01/18 12/02/18 12/02/18 09:30 03:30 07:05 Temperature 97.4 F L Pulse Rate 87 79 Respiratory 18 18 18 Rate Blood Pressure 163/89 135/82 12/02/18 12/03/18 12/03/18 09:13 07:00 09:06 Temperature 97.6 F Pulse Rate 96 H 82 96 H Respiratory 18 Rate Blood Pressure 161/91 146/84 151/84 12/03/18 11:30 BGM last 2 days range from 112-171, down from 200s previous week-patient was not always adherent to medications and refused diabetic medicine several times during her stay. A+O x3, CN 2-12 intact, no neurological deficits, Lungs clear , heart rate regular, S1S2 audible, medically stable for discharge. Assessment: 12/03/18 11:33 Medically stable for discharge Diagnoses: HIV HTN Diabetes, type 2 Peripheral neuropathy, GERD ETOH dependence, chronic Plan: After care at [facility], on-going medical care at [facility] with Dr. Negro. Client does not need prescriptions for medications, her medications are due to be delivered to her today at her address.
== END 2018-12-03 12:28 | disposition home or self-care (01) | DRG 772 ==
LOC: YASAS 14:50 → Y3E 18:39
PROVIDERS: ADMIT Neuromusculoskeletal Medicine & OMM; ATTEND Neuromusculoskeletal Medicine & OMM
PROC: HZ42ZZZ Group Counseling for Substance Abuse Treatment, Cognitive-Behavioral (ICD-10-PCS; principal; 2018-11-24)
DX: F10.20 Alcohol dependence, uncomplicated (principal); F14.20 Cocaine dependence, uncomplicated; F12.20 Cannabis dependence, uncomplicated; F17.210 Nicotine dependence, cigarettes, uncomplicated; F39 Unspecified mood [affective] disorder; F42.9 Obsessive-compulsive disorder, unspecified; F19.24 Other psychoactive substance dependence with psychoactive substance-induced mood disorder; F19.282 Other psychoactive substance dependence with psychoactive substance-induced sleep disorder; I10 Essential (primary) hypertension; Z21 Asymptomatic human immunodeficiency virus [HIV] infection status; E11.9 Type 2 diabetes mellitus without complications; G62.9 Polyneuropathy, unspecified; K21.9 Gastro-esophageal reflux disease without esophagitis; J02.9 Acute pharyngitis, unspecified; E78.5 Hyperlipidemia, unspecified; E66.9 Obesity, unspecified; Z68.30 Body mass index [BMI] 30.0-30.9, adult; Z87.42 Personal history of other diseases of the female genital tract; Z79.4 Long term (current) use of insulin; Z91.5 Personal history of self-harm
CPT/HCPCS: 36415; 80053; 81003; 82962; 85027; 86593; 87070; 93005; 93010; J0475; J0735